=== PATIENT | female | born 1950 | race Caucasian/White ===

== ENCOUNTER 2017-03-01 06:14 | Inpatient (IN) ==
[2017-02-19 09:53] LABS: Basophils % 0.5 % (0.0-0.8); Eosinophils # 0.2 10*3/uL (0.0-0.87); Eosinophils % 3.9 % (0.00-10.9); Hematocrit 41.7 VOL% (35.7-47.0); Hemoglobin 14.8 GM/DL (12.0-16.0); Immature Granulocytes % 0.5 %; Immature Granulocytes Absolute 0.02 #; Lymphocytes # 1.2 10*3/uL (1.4-4.0); Lymphocytes % 30.1 % (21.3-54.2); Mean Corpuscular HGB Conc 35.5 GM/DL (32-36); Mean Corpuscular Hemoglobin 31 PG (27-34); Mean Corpuscular Volume 86.5 FL (87-102); Mean Platelet Volume 10.7 FL (9.6-12.0); Monocytes # 0.5 10*3/uL (0.11-0.8); Monocytes % 12.3 % (1.7-12.7); Neutrophils # 2.2 10*3/uL (1.4-7.4); Neutrophils % 52.7 % (38.7-73.9); Platelet Count 208 T/CUMM (130-400); Red Blood Count 4.82 MC/CUMM (3.8-5.5); Red Cell Distribution Width 12.3 % (9.3-17.3); White Blood Count 4.1 T/CUMM (4-12)
[2017-02-19 10:56] LABS: Albumin 3.8 G/DL (3.4-5.0); Bilirubin,Total 0.7 MG/DL (0.2-1.0); Calcium 9.1 MG/DL (8.5-10.1); Osmolality,Calculated 281.3 MOS/KG (273-304); Potassium 3.8 MMOL/L (3.5-5.1); Total Protein 7.1 G/DL (6.4-8.3)
[~2017-03-01 06:14] MED LIST: ALVIMOPAN 12 MG CAPSULE PO ONE; cefOXitin 1,000 MG in SYRINGE 1 EACH IV ONE
[2017-03-01] MEDS ORDERED: ALVIMOPAN 12 MG CAPSULE ONE (07:03)
[2017-03-01] MEDS ORDERED: SCOPOLAMINE 1.5 MG PATCH TRANSDERM ONE ×2 (07:03→07:29)
[2017-03-01] MEDS ORDERED: DIAZEPAM 5 MG TABLET PO ONE (07:24)
[2017-03-01] MEDS ORDERED: LACTATED RINGERS 1,000 ML IV SCH (07:30)
[2017-03-01] MEDS ORDERED: DIAZEPAM 5 MG TABLET ONE (07:50)
[2017-03-01] MEDS ORDERED: BUPIVACAINE 0.25% 50 ML VIAL ONE (09:26)
[2017-03-01] MEDS ORDERED: DESFLURANE 1 UNIT/15 MINUTE INH ONE (12:51)
[2017-03-01] MEDS ORDERED: PROPOFOL 200 MG/20 ML VIAL IV ONE (12:51)
[2017-03-01] MEDS ORDERED: MIDAZOLAM 2 MG/2 ML VIAL ONE (12:52)
[2017-03-01] MEDS ORDERED: ePHEDrine 50 MG/ML AMP ONE (12:52)
[2017-03-01] MEDS ORDERED: DEXAMETHASONE 10 MG/1 ML VIAL ONE (12:52)
[2017-03-01] MEDS ORDERED: fentaNYL 100 MCG/2 ML VIAL ONE (12:52)
[2017-03-01] MEDS ORDERED: ONDANSETRON 4 MG/2 ML VIAL ONE (12:52)
[2017-03-01] MEDS ORDERED: KETOROLAC 30 MG/1 ML VIAL ONE (12:52)
[2017-03-01] MEDS ORDERED: GLYCOPYRROLATE 0.4 MG/2 ML VIAL ONE (12:52)
[2017-03-01] MEDS ORDERED: LACTATED RINGERS 2,000 ML IV ONE (12:53)
[2017-03-01] MEDS ORDERED: NEOSTIGMINE 10 MG/10 ML VIAL ONE (12:53)
[2017-03-01] MEDS ORDERED: ROCURONIUM 100 MG/10 ML VIAL IV ONE (12:53)
[2017-03-01] MEDS ORDERED: ROPIVACAINE 0.5% 30 ML VIAL ONE ×2 (12:55→12:57)
[2017-03-01] MEDS ORDERED: MORPHINE PCA 30 MG/30 ML SYRINGE IV SCH (13:00)
[2017-03-01] MEDS ORDERED: LIDOCAINE 50 MG/5 ML SYRINGE ONE (13:00)
[2017-03-01 14:00] LABS: Hematocrit 41.8 VOL% (35.7-47.0); Hemoglobin 14.4 GM/DL (12.0-16.0)
[2017-03-01] MEDS: DEXTROSE 5% LACTATED RINGERS 1,000 ML IV SCH ×2 (16:37→20:54)
[2017-03-01] MEDS: metroNIDAZOLE INJ 500 MG in PREMIX 1 EACH IV SCH (20:54)
[2017-03-01] MEDS: ALVIMOPAN 12 MG CAPSULE PO SCH (20:54)
[2017-03-01] MEDS: amLODIPine 10 MG TABLET PO SCH (20:54)
[2017-03-01 21:53] LABS: Hematocrit 39.9 VOL% (35.7-47.0); Hemoglobin 13.6 GM/DL (12.0-16.0)
[2017-03-02] MEDS: ONDANSETRON 4 MG/2 ML VIAL IV PRN (01:19)
[2017-03-02] MEDS: metroNIDAZOLE INJ 500 MG in PREMIX 1 EACH IV SCH (03:30)
[2017-03-02 05:51] LABS: Hematocrit 38.5 VOL% (35.7-47.0); Hemoglobin 13.2 GM/DL (12.0-16.0)
[2017-03-02 05:52] LABS: Hematocrit 38.4 VOL% (35.7-47.0); Hemoglobin 13.3 GM/DL (12.0-16.0); Immature Granulocytes % 0.5 %; Immature Granulocytes Absolute 0.06 #; Lymphocytes # 0.6 10*3/uL (1.4-4.0); Lymphocytes % 4.8 % (21.3-54.2); Mean Corpuscular HGB Conc 34.6 GM/DL (32-36); Mean Corpuscular Hemoglobin 31 PG (27-34); Mean Corpuscular Volume 88.5 FL (87-102); Monocytes # 0.9 10*3/uL (0.11-0.8); Monocytes % 7.1 % (1.7-12.7); Neutrophils # 10.5 10*3/uL (1.4-7.4); Neutrophils % 87.6 % (38.7-73.9); Platelet Count 191 T/CUMM (130-400); Red Blood Count 4.34 MC/CUMM (3.8-5.5); Red Cell Distribution Width 12.1 % (9.3-17.3)
[2017-03-02] MEDS ORDERED: LEVOFLOXACIN INJ 500 MG in PREMIX 1 EACH IV SCH (06:00)
[2017-03-02 06:13] LABS: Band Neutrophils 4 % (0-10); Hypochromasia 1+; Lymphocytes 3 % (20-55); Microcytosis Slight; Platelet Estimate Normal; Segmented Neutrophils 84 % (50-85); Total Cells Counted 100
[2017-03-02 06:14] LABS: Giant Platelets Few
[2017-03-02 06:16] LABS: Calcium 8.6 MG/DL (8.5-10.1); Osmolality,Calculated 284.1 MOS/KG (273-304); Potassium 3.4 MMOL/L (3.5-5.1)
[2017-03-02] MEDS ORDERED: MORPHINE 2 MG/1 ML SYRINGE IV PRN (07:26)
[2017-03-02] MEDS: ENOXAPARIN 40 MG/0.4 ML SYRINGE SUBCUT SCH (07:28)
[2017-03-02] MEDS: ALVIMOPAN 12 MG CAPSULE PO SCH ×2 (09:40→21:10)
[2017-03-02] MEDS: PANTOPRAZOLE 40 MG TABLET PO SCH (09:40)
[2017-03-02] MEDS: hydroCHLOROthiazide 12.5 MG CAPSULE PO SCH (09:40)
[2017-03-02] MEDS: NADOLOL 40 MG TABLET PO SCH (09:49)
[2017-03-02] MEDS: amLODIPine 10 MG TABLET PO SCH (21:10)
[2017-03-02] MEDS: DEXTROSE 5% LACTATED RINGERS 1,000 ML IV SCH ×2 (21:13→21:14)
[2017-03-03] MEDS: DEXTROSE 5% LACTATED RINGERS 1,000 ML IV SCH ×3 (03:22→21:21)
[2017-03-03] MEDS: ENOXAPARIN 40 MG/0.4 ML SYRINGE SUBCUT SCH (06:18)
[2017-03-03] MEDS: NADOLOL 40 MG TABLET PO SCH (10:46)
[2017-03-03] MEDS: hydroCHLOROthiazide 12.5 MG CAPSULE PO SCH (10:46)
[2017-03-03] MEDS: PANTOPRAZOLE 40 MG TABLET PO SCH (10:46)
[2017-03-03] MEDS: ALVIMOPAN 12 MG CAPSULE PO SCH ×2 (10:46→21:23)
[2017-03-03] MEDS: ONDANSETRON 4 MG/2 ML VIAL IV PRN (18:09)
[2017-03-03] MEDS: amLODIPine 10 MG TABLET PO SCH (21:23)
[2017-03-04] MEDS: DEXTROSE 5% LACTATED RINGERS 1,000 ML IV SCH (06:32)
[2017-03-04] MEDS ORDERED: BISACODYL 10 MG SUPP RECTAL ONE (08:27)
[2017-03-04] MEDS: hydroCHLOROthiazide 12.5 MG CAPSULE PO SCH (10:54)
[2017-03-04] MEDS: ALVIMOPAN 12 MG CAPSULE PO SCH ×2 (10:54→20:47)
[2017-03-04] MEDS: ENOXAPARIN 40 MG/0.4 ML SYRINGE SUBCUT SCH (10:55)
[2017-03-04] MEDS: PANTOPRAZOLE 40 MG TABLET PO SCH (10:55)
[2017-03-04] MEDS: NADOLOL 40 MG TABLET PO SCH (10:55)
[2017-03-04] MEDS: amLODIPine 10 MG TABLET PO SCH (20:47)
[2017-03-05] MEDS: ENOXAPARIN 40 MG/0.4 ML SYRINGE SUBCUT SCH (06:13)
[2017-03-05] MEDS: DEXTROSE 5% LACTATED RINGERS 1,000 ML IV SCH (06:15)
[2017-03-05 07:19] VITALS: BP 128/81
== END 2017-03-05 08:34 | disposition home or self-care (01) | DRG 330 ==
LOC: N.OR 06:14 → N.SDSINP 06:15 → N.3E 13:59
PROVIDERS: ADMIT Surgery; ATTEND Surgery